=== PATIENT | female | born 1940 | race Two or more races ===

== ENCOUNTER 2023-11-24 20:00 | Inpatient (IN) | payer MEDICARE, OTHER ==
[~2023-11-24] VITALS: Ht 167.6 cm; Wt 89.9 kg
[~2023-11-24 20:00] MED LIST: TRAM50TA2 PO
[2023-11-24 20:42] LABS: Basophils # (auto) 0.1 10 ^3/uL (0-0.2); Lymphocytes # (auto) 1.2 10 ^3/uL (0.4-5.4); Neutrophils # (auto) 7.2 10 ^3/uL (1.6-8.6); White Blood Cell 9.1 10^3/uL (4.4-10.8)
[2023-11-24 20:43] LABS: Basophils % (auto) 0.7 % (0.0-2.0); Eosinophils # (auto) 0.2 10 ^3/uL (0-0.8); Eosinophils % (auto) 1.9 % (0.0-7.0); Hematocrit 40.7 % (36.0-46.0); Hemoglobin 12.7 g/dL (12.2-16.2); Lymphocytes % (auto) 13.4 % (10.0-50.0); Mean Corpuscular Hemoglobin 22.8 pg (28.0-32.0); Mean Corpuscular Hgb Conc. 31.2 g/dL (32.0-36.0); Mean Corpuscular Volume 73.1 fL (80.0-100.0); Monocytes # (auto) 0.4 10 ^3/uL (0-1.3); Monocytes % (auto) 4.9 % (0.0-12.0); Neutrophils % (auto) 79.1 % (37.0-80.0); Nucleated Red Blood Cells % 0.2 %; Red Blood Cells 5.56 10^6/uL (4.0-5.20)
[2023-11-24 20:48] LABS: Chloride 109 mmol/L (98-107); Sodium 140 mmol/L (136-145)
[2023-11-24 20:49] LABS: Anion Gap 8 (5-15); Calcium 9.2 mg/dL (8.5-10.1); Carbon Dioxide 23 mmol/L (20-30)
[2023-11-24 20:54] LABS: BUN/Creatinine Ratio 12.3 (10.0-20.0); Blood Urea Nitrogen 13 mg/dL (9-23); Glucose 148 mg/dL (74-106)
[2023-11-24 21:01] LABS: Red Cell Distribution Width 21.4 % (11.8-14.3)
[2023-11-24] MEDS ORDERED: NITROGLYCERIN 0.4 MG SL TAB SL PRN (23:00)
[2023-11-24] MEDS ORDERED: ONDANSETRON HCL 4 MG/2 ML VIAL IV PRN (23:00)
[2023-11-24] MEDS ORDERED: DEXTROSE (50%) 50ML SYRG IV PRN (23:00)
[2023-11-24] MEDS ORDERED: ACETAMINOPHEN 325 MG TAB PO PRN (23:00)
[2023-11-24] MEDS ORDERED: MORPHINE SULFATE INJ 2 MG/ml SYRG IV PRN (23:00)
[2023-11-24] MEDS: FUROSEMIDE 100 MG/10ML VIAL IV ONE (23:04)
[2023-11-25] VITALS (8 sets, daily range): BP systolic 104–156; BP diastolic 65–100; PULSE 72–91; RESP 20–35; TEMP 97.5–98.5; O2SAT 92–99
[2023-11-25 06:24] LABS: Anion Gap 10 (5-15); Carbon Dioxide 20 mmol/L (20-30); Chloride 108 mmol/L (98-107); Potassium 4.3 mmol/L (3.5-5.1); Sodium 138 mmol/L (136-145)
[2023-11-25 06:25] LABS: Calcium 9.2 mg/dL (8.7-10.4)
[2023-11-25 06:30] LABS: Blood Urea Nitrogen 17 mg/dL (9-23); Glucose 137 mg/dL (74-106)
[2023-11-25] MEDS: FUROSEMIDE 20 MG/2 ML VIAL IV SCH (08:21)
[2023-11-25] MEDS: InsuLIN REG 1unit/0.01ml Soln (100units/ml) SC SCH (08:24)
[2023-11-25] MEDS: ACCU-CHEK COMFORT CURVE STRIP VI SCH (08:24)
[2023-11-25] MEDS ORDERED: ENOXAPARIN SOD 40 MG/0.4 ML SYRINGE SC SCH (10:00)
[2023-11-25] MEDS ORDERED: FURO40TA4 PO (12:04)
[2023-11-25] MEDS ORDERED: POTA-228 PO (12:04)
[2023-11-25] MEDS ORDERED: MET25T PO (12:04)
[2023-11-25] MEDS: ENOXAPARIN SOD 100 MG/1 ML SYRINGE SC SCH (12:08)
[2023-11-25] MEDS: ASPirin 81 mg TAB PO SCH (12:08)
[2023-11-25] MEDS: METOPROLOL TARTRATE 25 MG TAB PO SCH (12:10)
[2023-11-25] MEDS ORDERED: MONT-8 PO (12:20)
[2023-11-25] MEDS ORDERED: FLUT1AER3 INH (12:20)
[2023-11-25] MEDS ORDERED: METF-370 PO (12:20)
[2023-11-25] MEDS ORDERED: SERT-206 PO (12:20)
[2023-11-25 12:31] LABS: Magnesium 2.1 mg/dL (1.6-2.6)
[2023-11-25] MEDS ORDERED: ONDANSETRON HCL 4 MG/2 ML VIAL IV PRN (16:15)
[2023-11-25] MEDS ORDERED: ALBUTEROL SULF 2.5 MG/0.5ML(0.5%) NEB SOLN NEB PRN (16:15)
[2023-11-25] MEDS ORDERED: MORPHINE SULFATE INJ 2 MG/ml SYRG IV PRN (16:15)
[2023-11-25] MEDS ORDERED: IPRATROPIUM BROM 0.5 MG/2.5ML INH SOL NEB PRN (16:15)
[2023-11-25] MEDS ORDERED: HYDROcodone-ACET 5/325MG TAB PO PRN (16:15)
[2023-11-25] MEDS: ATORVASTATIN 20 MG TAB PO SCH (21:58)
[2023-11-25] MEDS: APIXABAN 2.5 MG TAB PO SCH (21:58)
[2023-11-26] VITALS (10 sets, daily range): BP systolic 104–125; BP diastolic 44–72; PULSE 57–92; RESP 16–24; TEMP 97.4–97.8; O2SAT 91–100
[2023-11-26] MEDS: ACETAMINOPHEN 500 MG TAB PO PRN (00:53)
[2023-11-26 08:45] LABS: Potassium 4.2 mmol/L (3.5-5.1); Sodium 140 mmol/L (136-145)
[2023-11-26 08:46] LABS: Carbon Dioxide 22 mmol/L (20-30)
[2023-11-26 08:51] LABS: BUN/Creatinine Ratio 23.5 (10.0-20.0); Blood Urea Nitrogen 24 mg/dL (9-23); Glucose 141 mg/dL (74-106)
[2023-11-26 08:57] LABS: Chloride 107 mmol/L (98-107)
[2023-11-26 08:58] LABS: Anion Gap 11 (5-15)
[2023-11-26 14:30] LABS: Base Excess 1.1 mmol/L (-2.0-2.0)
[2023-11-26] MEDS: METOPROLOL TARTRATE 25 MG TAB PO SCH (23:22)
[2023-11-27] VITALS (11 sets, daily range): BP systolic 97–129; BP diastolic 38–83; PULSE 77–98; RESP 15–26; TEMP 97.4–98.3; O2SAT 95–100
[2023-11-27 05:35] LABS: Basophils # (auto) 0.1 10 ^3/uL (0-0.2); Eosinophils # (auto) 0.3 10 ^3/uL (0-0.8); Hemoglobin 11.7 g/dL (12.2-16.2); Lymphocytes # (auto) 1.4 10 ^3/uL (0.4-5.4); Mean Corpuscular Hemoglobin 22.7 pg (28.0-32.0)
[2023-11-27 05:39] LABS: Basophils % (auto) 0.8 % (0.0-2.0); Eosinophils % (auto) 3.5 % (0.0-7.0); Hematocrit 36.7 % (36.0-46.0); Lymphocytes % (auto) 16.2 % (10.0-50.0); Mean Corpuscular Volume 71.1 fL (80.0-100.0); Monocytes # (auto) 0.6 10 ^3/uL (0-1.3); Monocytes % (auto) 6.4 % (0.0-12.0); Neutrophils # (auto) 6.3 10 ^3/uL (1.6-8.6); Neutrophils % (auto) 73.1 % (37.0-80.0); Nucleated Red Blood Cells % 0.2 %; Red Blood Cells 5.16 10^6/uL (4.0-5.20); White Blood Cell 8.6 10^3/uL (4.4-10.8)
[2023-11-27 05:41] LABS: Red Cell Distribution Width 20.4 % (11.8-14.3)
[2023-11-27 05:50] LABS: Anion Gap 6 (5-15); Calcium 8.5 mg/dL (8.7-10.4); Carbon Dioxide 28 mmol/L (20-30); Chloride 104 mmol/L (98-107); Potassium 3.8 mmol/L (3.5-5.1); Sodium 138 mmol/L (136-145)
[2023-11-27 05:56] LABS: BUN/Creatinine Ratio 27.8 (10.0-20.0); Blood Urea Nitrogen 22 mg/dL (9-23); Glucose 115 mg/dL (74-106)
[2023-11-27 07:31] LABS: Platelet Estimate Adequate
[2023-11-27 07:32] LABS: Ovalocytes MODERATE
[2023-11-27] MEDS: EMPAGLIFLOZIN 10 MG TAB PO SCH (10:04)
[2023-11-27] MEDS ORDERED: MORPHINE SULFATE 4 MG/ML SYR/VIAL IV PRN ×2 (22:30)
[2023-11-28 05:00] VITALS: BP 107/56; PULSE 85; RESP 22; TEMP 98.3; O2SAT 96
[2023-11-28 07:32] VITALS: O2SAT 96
[2023-11-28 09:17] VITALS: BP 138/68; PULSE 75; RESP 22; TEMP 98; O2SAT 90
[2023-11-28] MEDS: SPIRONOLACTONE 25 MG TAB PO SCH (09:56)
[2023-11-28] MEDS: LISINOPRIL 5 MG TAB PO SCH (09:57)
[2023-11-28] MEDS ORDERED: FUR20T PO (11:28)
[2023-11-28 12:23] VITALS: BP 138/68; PULSE 81; TEMP 36.7
[2023-11-28 13:00] VITALS: BP_SYST 116; BP_SYST 133; BP_DIAS 44; BP_DIAS 50; PULSE 68; PULSE 84; RESP 16; RESP 17; TEMP 97.8; TEMP 98.6; O2SAT 100; O2SAT 97
== END 2023-11-28 14:16 | disposition home or self-care (01) | DRG 291 ==
LOC: ER 20:00 → TELE 23:02 → TELE-WESTW 11-25 10:00
PROVIDERS: ADMIT Nurse Practitioner; ATTEND Nurse Practitioner Acute Care
DX: I11.0 Hypertensive heart disease with heart failure (principal); G93.41 Metabolic encephalopathy; I50.23 Acute on chronic systolic (congestive) heart failure; J96.21 Acute and chronic respiratory failure with hypoxia; I48.19 Other persistent atrial fibrillation; J44.9 Chronic obstructive pulmonary disease, unspecified; E66.01 Morbid (severe) obesity due to excess calories; Z96.653 Presence of artificial knee joint, bilateral; E11.65 Type 2 diabetes mellitus with hyperglycemia; Z91.148 Patient's other noncompliance with medication regimen for other reason; Z88.5 Allergy status to narcotic agent; Z87.891 Personal history of nicotine dependence; Z68.32 Body mass index [BMI] 32.0-32.9, adult; Z79.84 Long term (current) use of oral hypoglycemic drugs
CPT/HCPCS: 36415; 36600; 71045; 80048; 80061; 82805; 82962; 83036; 83735; 83880; 84443; 84484; 85025; 87081; 93005; 93306; 93971; G0378; J1815